=== PATIENT | female | born 1990 | race African-American/Black ===

== ENCOUNTER 2016-07-22 12:24 | Emergency (ER) | payer OTHER ==
[~2016-07-22] VITALS: Ht 152.4 cm; Wt 77.1 kg
[~2016-07-22 12:24] MED LIST: DOXYCYCLINE HY100 M4 PO; FLAGYL500 MG PO
--- NOTE | 2016-07-22 13:18 | ED GI/GU/ABDOMINAL COMPLAINT ---
History of Present Illness General Chief Complaint: General Adult Stated Complaint: "NOT FEELING WELL" L ABD PAIN Source: patient Exam Limitations: no limitations Vital Signs & Intake/Output Vital Signs & Intake/Output Vital Signs Date Time Temp Pulse Resp B/P B/P Pulse O2 O2 Flow FiO2 Mean Ox Delivery Rate 07/22 1539 97.8 80 20 113/61 100 07/22 1236 96.7 86 18 122/73 98 Room Air Allergies Coded Allergies: NO KNOWN ALLERGIES (12/28/12) Reconcile Medications No Known Home Medications Triage Note: PT STATES THAT SHE JUST NOT FEEL WELL , STATES THAT SHE HAS LOW ABD PAIN FOR THE PAST WEEK , OFF AND ON WITH SLIGHT NAUSEA. LBM THIS AM AND NORMAL,DENIES URINARY SYMPTOMS. LMP 07/07. Triage Nurses Notes Reviewed? yes ? N Is pt currently ? No HPI: Patient presents with bilateral lower quadrant and suprapubic crampy pain that she's had constantly for the past week. There are no aggravating or mitigating factors. There is no radiation. She rates as 3 out of 10. There is no dysuria or vaginal discharge. Patient's last menstrual period was July 08. She states that she occasionally gets nauseous, mainly at night. There's been no vomiting. There is no diarrhea. Past History Travel History Traveled to [place] past 21 day No Medical History Any Pertinent Medical History? none Neurological: NONE EENT: NONE Cardiovascular: NONE Respiratory: NONE Gastrointestinal: NONE Hepatic: NONE Renal: NONE Musculoskeletal: NONE Psychiatric: NONE Endocrine: NONE Blood Disorders: NONE Cancer(s): NONE TRAILER MECHANIC/Reproductive: NONE Surgical History Surgical History: none Psychosocial History What is your primary language Estonian Tobacco Use: Never used ETOH Use: denies use Illicit Drug Use: denies illicit drug use Family History Hx Contributory? No Review of Systems Review of Systems Constitutional: Reports: no symptoms. EENTM: Reports: no symptoms. Respiratory: Reports: no symptoms. Cardiovascular: Reports: no symptoms. GI: Reports: see HPI, abdominal pain, nausea. Genitourinary: Reports: no symptoms. Musculoskeletal: Reports: no symptoms. Skin: Reports: no symptoms. Neurological/Psychological: Reports: no symptoms. Hematologic/Endocrine: Reports: no symptoms. Immunologic/Allergic: Reports: no symptoms. All Other Systems: Reviewed and Negative Physical Exam Physical Exam General Appearance: well developed/nourished, alert, awake, anxious, mild distress Head: atraumatic, normal appearance Eyes: Bilateral: PERRL, EOMI. Ears, Nose, Throat, Mouth: hearing grossly normal, moist mucous membrane Neck: normal inspection, supple, full range of motion Respiratory: normal breath sounds, chest non-tender, no respiratory distress, lungs clear Cardiovascular: regular rate/rhythm, normal peripheral pulses Gastrointestinal: normal bowel sounds, soft, non-tender, no organomegaly Pelvic: normal external exam, cervicitis, discharge Back: normal inspection, normal range of motion Extremities: normal range of motion Neurologic/Psych: no motor/sensory deficits, awake, alert, oriented x 3, normal gait, normal mood/affect Skin: intact, normal color, warm/dry Core Measures ACS in differential dx? No Severe Sepsis Present: No Septic Shock Present: No Progress Differential Diagnosis: ectopic , intrauterine , ovarian cyst, ovarian torsion, PID/cervicitis, threatened AB, UTI/pyelo Plan of Care: Orders Procedure Date/time Status TRICHOMONAS 07/22 1534 Active POTASSIUM HYDROXIDE (TAYLA) 07/22 1534 Active GENITAL CULTURE 07/22 1534 Active CHLAMYDIA-GC DNA PROBE 07/22 1534 Active LIPASE 07/22 1317 Complete COMPREHENSIVE METABOLIC PANEL 07/22 1317 Complete CBC WITHOUT DIFFERENTIAL 07/22 1317 Complete AMYLASE 07/22 1317 Complete URINE 07/22 1239 Complete URINALYSIS 07/22 1239 Complete Laboratory Tests 07/22/16 1333: Anion Gap 11, Estimated GFR > 60, BUN/Creatinine Ratio 15.7, Glucose 83, Calcium 9.4, Total Bilirubin 0.7, AST 18, ALT 21, Alkaline Phosphatase 49, Total Protein 7.5, Albumin 4.3, Globulin 3.2, Albumin/Globulin Ratio 1.3, Amylase 63, Lipase 74, CBC w Diff NO MAN DIFF REQ, RBC 4.36, MCV 84.0, MCH 27.0, RDW 15.5 H, MPV 9.5, Gran % 45.4, Lymphocytes % 46.3, Monocytes % 6.4, Eosinophils % 1.5, Basophils % 0.4, Absolute Granulocytes 2.7, Absolute Lymphocytes 2.8, Absolute Monocytes 0.4, Absolute Eosinophils 0.1, Absolute Basophils 0, PUBS MCHC 32.1 L 07/22/16 1253: Urine Color YEL, Urine Clarity CLEAR, Urine pH 6.5, Ur Specific [place] 1.015, Urine Protein NEG, Urine Ketones NEG, Urine Nitrite NEG, Urine Bilirubin NEG, Urine Urobilinogen 0.2, Ur Leukocyte Esterase NEG, Ur Microscopic SEDIMENT EXAMINED, Urine RBC 3-5, Urine WBC RARE, Ur Epithelial Cells FEW, Urine Hemoglobin SMALL H, Urine Glucose NEG, Urine Test NEGATIVE Microbiology 07/22 154 GENITAL: GC DNA Probe - RECD 07/22 154 GENITAL: Chlamydia DNA Probe (GUS) - RECD 07/22 154 GENITAL: TAYLA Preparation - RECD 07/22 154 GENITAL: Trichomonas Preparation - RECD 07/22 154 GENITAL: Genital Culture - RECD Initial ED EKG: none Departure Departure Disposition: HOME OR SELF CARE Condition: Stable Clinical Impression Primary Impression: Pelvic pain Referrals: PATIENT HAS NO PRIMARY CARE DR (PCP/Family) Additional Instructions: Return if symptoms worsen or for any concerns. Departure Forms: Customer Survey General Discharge Information Prescriptions: Current Visit Scripts No Known Home Medications
[2016-07-22 13:45] LABS: ABSOLUTE BASOPHIL COUNT 0 /CUMM (0.0-0.2); ABSOLUTE EOSINOPHIL COUNT 0.1 /CUMM (0.0-0.7); ABSOLUTE GRANULOCYTE CT 2.7 /CUMM (1.4-6.5); ABSOLUTE LYMPH COUNT 2.8 /CUMM (1.2-3.4); ABSOLUTE MONOCYTE COUNT 0.4 /CUMM (0.10-0.60); BASOPHIL % 0.4 % (0.0-2.0); EOSINOPHIL % 1.5 % (0-5); GRANULOCYTE % 45.4 % (42.2-75.2); HEMATOCRIT 36.7 % (37-47); MEAN CORPUSCULAR HGB CONC 32.1 G/DL (33.0-37.0); MEAN PLATELET VOLUME 9.5 FL (7.4-10.4); PLATELET COUNT 248 /CUMM (130-400); RBC DISTRIBUTION WIDTH 15.5 % (11.5-14.5); RED BLOOD CELL CT 4.36 /CUMM (4.20-5.40)
[2016-07-22 15:39] VITALS: BP 113/61
== END 2016-07-22 16:20 ==
LOC: ERH 12:24
PROVIDERS: Emergency Medicine
DX: R10.2 Pelvic and perineal pain (principal)
CPT/HCPCS: 87070; 81001; 81025; 87071; 87491; 87591; 96372; J0456; J0696